=== PATIENT | female | born 1940 | race Caucasian/White ===

== ENCOUNTER 2019-05-29 09:16 | Emergency (ER) | payer MEDICARE, BC ==
--- NOTE | 2019-05-29 10:12 | EDM.PDOC ---
ED HPI GENERAL MEDICAL PROBLEM - General Chief Complaint: General Stated Complaint: SHORTNESS OF BREATH Time Seen by Provider: 05/29/19 09:55 Source of Information: Reports: Patient, Old Records, RN History Limitations: Reports: No Limitations - History of Present Illness INITIAL COMMENTS - FREE TEXT/NARRATIVE: 78 yo female was traveling as a passenger in her family car on her way to a daughter's in [place]. They got about 30 min from home and she felt very subtle chest tightness and mild SOB. They turned around and came back here. She is feeling some better on arrival to the ER. She has no cardiac hx. No recent calf pain or LE edema. She has a remote hx of breast CA. No recent fevers or cough. Onset: Today Onset Date: 05/29/19 Duration: Minutes:, Improving Location: Reports: Chest Quality: Reports: Other (subtle tightness) Severity: Mild Improves with: Reports: Other (? 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) (none) anterior chest Pain Score (Numeric/FACES): 5 - Related Data Allergies Allergy/AdvReac Type Severity Reaction Status Date / Time No Known Allergies Allergy Verified 05/29/19 09:38 Home Meds: Home Meds Ascorbic Acid [C-500] 500 mg PO DAILY 09/26/14 [History] Aspirin 325 mg PO DAILY 09/26/14 [History] Calcium Carbonate [Calcium] 1,200 mg PO DAILY 09/26/14 [History] Cholecalciferol (Vitamin D3) [Vitamin D3] 2,000 unit PO DAILY 09/26/14 [History] Multivitamin with Minerals [Multiple Vitamin] 1 tab PO DAILY 09/26/14 [History] Vitamin E 100 unit PO DAILY 09/26/14 [History] Donepezil HCl [Aricept] 10 mg PO DAILY 05/29/19 [History] Doxycycline [Vibramycin] 100 mg PO BID #14 cap 05/29/19 [Rx] Everolimus [Afinitor] 10 mg PO DAILY 05/29/19 [History] Exemestane 25 mg PO DAILY 05/29/19 [History] Past Medical History Respiratory History: Reports: Sleep Apnea Genitourinary History: Reports: Urinary Incontinence 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: Musculoskeletal History: Reports: Arthritis, Osteoarthritis, Other (See Below) Other Musculoskeletal History: osteopenia bunion great toe l bone metastasis Neurological History: Reports: Alzheimers Disease Psychiatric History: Reports: Depression Endocrine/Metabolic History: Reports: Other (See Below) Other Endocrine/Metabolic History: thrombocytopenia Oncologic (Cancer) History: Reports: Breast - Infectious Disease History Infectious Disease History: Reports: Chicken Pox - Past Surgical History Female Surgical History: Reports: Mastectomy, Other (See Below) Other Female Surgeries/Procedures: uterine prolapse Oncologic Surgical History: Reports: Mastectomy Social & Family History - Tobacco Use Smoking Status *Q: Never Smoker Second Hand Smoke Exposure: No - Caffeine Use Caffeine Use: Reports: Coffee, Soda - Alcohol Use Days Per Week of Alcohol Use: 0 - Recreational Drug Use Recreational Drug Use: No ED ROS GENERAL - Review of Systems Review Of Systems: See Below Constitutional: Reports: No Symptoms HEENT: Reports: No Symptoms Respiratory: Reports: Shortness of Breath (mild, better now) Cardiovascular: Reports: Chest Pain (mild chest tightness). Denies: Dyspnea on Exertion, Edema, Lightheadedness, Orthopnea, Palpitations, Syncope GI/Abdominal: Reports: No Symptoms : Reports: No Symptoms Musculoskeletal: Reports: No Symptoms Skin: Reports: No Symptoms Neurological: Reports: No Symptoms ED EXAM, GENERAL - Physical Exam Exam: See Below Exam Limited By: No Limitations General Appearance: Alert, WD/WN, No Apparent Distress Eye Exam: Bilateral Eye: Normal Inspection Ears: Normal External Exam, Normal Canal, Hearing Grossly Normal Ear Exam: Bilateral Ear: Auricle Normal, Canal Normal Nose: Normal Inspection, No Blood Throat/Mouth: Normal Inspection, Normal Lips, Normal Oropharynx, Normal Voice, No Airway Compromise Head: Atraumatic, Normocephalic Neck: Normal Inspection Respiratory/Chest: No Respiratory Distress, Lungs Clear, Normal Breath Sounds, No Accessory Muscle Use Cardiovascular: Regular Rate, Rhythm, No Edema GI/Abdominal: Normal Bowel Sounds, Soft, Non-Tender, No Distention Back Exam: Normal Inspection. No: CVA Tenderness (R), CVA Tenderness (L) Extremities: Normal Inspection, Normal Range of Motion, Non-Tender, No Pedal Edema Neurological: Alert, Oriented, CN II-XII Intact, Normal Cognition, No Motor/ Sensory Deficits Psychiatric: Normal Affect, Normal Mood Skin Exam: Warm, Dry, Intact, Normal Color, No Rash EKG INTERPRETATION EKG Date: 05/29/19 Time: 10:25 Rhythm: NSR Rate (Beats/Min): 85 [place]: Normal P-Wave: Present QRS: Normal ST-T: Normal QT: Prolonged Comparison: NA - No Prior EKG Course - Vital Signs Last Recorded V/S: Last Vital Signs Temp 37.1 C 05/29/19 09:57 Pulse 86 05/29/19 10:32 Resp 12 05/29/19 10:32 BP 128/76 05/29/19 10:32 Pulse Ox 95 05/29/19 10:32 - Orders/Labs/Meds Orders: Active Orders 24 hr Category Date Time Status EKG Documentation Completion [RC] ASDIRECTED Care 05/29/19 10:07 Active Iopamidol [Isovue-370 (76%)] Med 05/29/19 11:45 Active 75 ml IV . DIRECTED NS + KCl 20mEq/L [Normal Saline with 20 mEq KCl] 1,000 Med 05/29/19 11:45 Active ml IV ASDIRECTED Sodium Chloride 0.9% [Saline Flush] Med 05/29/19 11:16 Active 10 ml FLUSH ASDIRECTED PRN Sodium Chloride 0.9% [Saline Flush] Med 05/29/19 11:45 Active 10 ml FLUSH ONETIME PRN Saline Lock Insert [OM.PC] Routine Oth 05/29/19 11:16 Ordered EKG 12 Lead [EK] Routine Ther 05/29/19 10:06 Ordered Medication Orders Potassium Chloride/Sodium Chloride (Normal Saline With 20 Meq Kcl) 1,000 mls @ 500 mls/hr IV ASDIRECTED LEYDI Iopamidol (Isovue-370 (76%)) 75 ml IV . DIRECTED LEYDI Last Admin: 05/29/19 12:04 Dose: 75 ml Sodium Chloride (Saline Flush) 10 ml FLUSH ASDIRECTED PRN PRN Reason: Keep Vein Open Last Admin: 05/29/19 11:24 Dose: 10 ml Sodium Chloride (Saline Flush) 10 ml FLUSH ONETIME PRN PRN Reason: PER RADIOLOGY PROTOCOL Last Admin: 05/29/19 12:04 Dose: 10 ml Labs: Laboratory Tests 05/29/19 05/29/19 05/29/19 Range/Units 10:15 10:15 11:14 D-Dimer, Quantitative 1480 H (0.0-400.0) ng/mL Sodium 134 L (140-148) mmol/L Potassium 3.5 L (3.6-5.2) mmol/L Chloride 98 L (100-108) mmol/L Carbon Dioxide 25 (21-32) mmol/L Anion Gap 14.5 H (5.0-14.0) mmol/L BUN 9 (7-18) mg/dL Creatinine 0.8 (0.6-1.0) mg/dL Est Cr Clr Drug Dosing 44.36 mL/min Estimated GFR (MDRD) > 60 (>60) Glucose 173 H (74-106) mg/dL Calcium 8.2 L (8.5-10.1) mg/dL Troponin I < 0.017 (0.000-0.056) ng/mL Meds: Medications Generic Name Dose Route Start Last Admin Trade Name Freq PRN Reason Stop Dose Admin Potassium Chloride/Sodium Chloride 1,000 mls @ 500 mls/hr 05/29/19 11:45 Normal Saline With 20 Meq Kcl IV ASDIRECTED LEYDI Iopamidol 75 ml 05/29/19 11:45 05/29/19 12:04 Isovue-370 (76%) IV 75 ml . DIRECTED LEYDI Administration Sodium Chloride 10 ml 05/29/19 11:16 05/29/19 11:24 Saline Flush FLUSH 10 ml ASDIRECTED PRN Administration Keep Vein Open Sodium Chloride 10 ml 05/29/19 11:45 05/29/19 12:04 Saline Flush FLUSH 10 ml ONETIME PRN Administration PER RADIOLOGY PROTOCOL Discontinued Medications Generic Name Dose Route Start Last Admin Trade Name Freq PRN Reason Stop Dose Admin Sodium Chloride 79 mls @ 3 mls/sec 05/29/19 11:45 05/29/19 12:04 Normal Saline IV 05/29/19 11:46 3 mls/sec ONETIME ONE Administration - Radiology Interpretation Free Text/Narrative:: CTA chest-no PE, mixed interstitial alveolar pattern. CT Results Date: 05/29/19 Departure - Departure Time of Disposition: 13:53 Disposition: Home, Self-Care 01 Condition: Fair Clinical Impression: Bronchitis - Discharge Information *PRESCRIPTION DRUG MONITORING PROGRAM REVIEWED*: No *COPY OF PRESCRIPTION DRUG MONITORING REPORT IN PATIENT RADHA: No Referrals: Trenton Pack MD [Primary Care Provider] - Forms: ED Department Discharge Additional Instructions: Take doxycycline every 12 hrs. F/U with your doctor next week. Return if worse. Sepsis Event Note - Evaluation Sepsis Screening Result: No Definite Risk - Focused Exam Vital Signs: Vital Signs Temp Pulse Resp BP Pulse Ox 05/29/19 10:32 86 12 128/76 95 05/29/19 10:02 83 13 125/78 97 05/29/19 09:57 37.1 C 89 19 143/87 H 98 05/29/19 09:37 37.1 C 89 20 143/87 H 98 Date Exam was Performed: 05/29/19 Time Exam was Performed: 13:51 - My Orders Last 24 Hours: My Active Orders 05/29/19 10:06 EKG 12 Lead [EK] Routine 05/29/19 10:07 EKG Documentation Completion [RC] ASDIRECTED 05/29/19 11:16 Sodium Chloride 0.9% [Saline Flush] 10 ml FLUSH ASDIRECTED PRN Saline Lock Insert [OM.PC] Routine 05/29/19 11:45 Iopamidol [Isovue-370 (76%)] 75 ml IV . DIRECTED NS + KCl 20mEq/L [Normal Saline with 20 mEq KCl] 1,000 ml IV ASDIRECTED Sodium Chloride 0.9% [Saline Flush] 10 ml FLUSH ONETIME PRN - Assessment/Plan Last 24 Hours: My Active Orders 05/29/19 10:06 EKG 12 Lead [EK] Routine 05/29/19 10:07 EKG Documentation Completion [RC] ASDIRECTED 05/29/19 11:16 Sodium Chloride 0.9% [Saline Flush] 10 ml FLUSH ASDIRECTED PRN Saline Lock Insert [OM.PC] Routine 05/29/19 11:45 Iopamidol [Isovue-370 (76%)] 75 ml IV . DIRECTED NS + KCl 20mEq/L [Normal Saline with 20 mEq KCl] 1,000 ml IV ASDIRECTED Sodium Chloride 0.9% [Saline Flush] 10 ml FLUSH ONETIME PRN
[2019-05-29] MEDS ORDERED: Sodium Chloride 0.9% 10 ML Syringe FLUSH PRN ×2 (11:16→11:45)
[2019-05-29] MEDS ORDERED: Iopamidol 755 Mg/ML 100 ML Bottle IV SCH (11:45)
[2019-05-29] MEDS ORDERED: NS + KCl 20mEq/L 1,000 ML IV SCH (11:45)
--- NOTE | 2019-05-29 13:40 | CT ---
Ang Chest CLINICAL HISTORY: SOB, elevated d-dimer TECHNIQUE: Thin section axial contiguous tomographic sections were taken through the chest after bolus IV iodinated contrast administration. Coronal and sagittal images were reconstructed. Auto dosage reduction and iterative reconstruction techniques employed. FINDINGS: There is diffuse patchy infiltrate-like density in the right apex which has increased since prior study. There is similar patchy peripheral infiltrate-like densities in both lower lobes and in the right middle lobe. There is some minimal groundglass opacification in the left upper lobe. This is a change since prior study. There is no significant bronchiectasis but there is some bronchial thickening or peribronchial infiltrate. No filling defects identified in the pulmonary arteries. Aorta is free of aneurysm or dissection. There is moderate atheromatous plaque. No mediastinal mass or lymphadenopathy is seen. IMPRESSION: No evidence of pulmonary embolus Patchy infiltrate-like density diffusely throughout both lungs in a peripheral distribution. There is a mixed interstitial and alveolar pattern. There is minimal groundglass opacification This may represent an atypical pneumonia or possibly interstitial pneumonitis. Chronic infection is also consideration. Short-term follow-up recommended following course of treatment
[2019-05-29 14:07] VITALS: BP 146/88; PULSE 95
== END 2019-05-29 14:07 | disposition home or self-care (01) ==
LOC: JP.ED 09:16
DX: J40 Bronchitis, not specified as acute or chronic (principal); G30.9 Alzheimer's disease, unspecified; F02.80 Dementia in other diseases classified elsewhere, unspecified severity, without behavioral disturbance, psychotic disturbance, mood disturbance, and anxiety; Z79.82 Long term (current) use of aspirin
CPT/HCPCS: 36415; 71275; 80048; 84484; 85379; 93005; 99285; J7050; Q9967; 99283

== ENCOUNTER 2019-06-01 17:49 | Emergency (ER) | payer MEDICARE, BC ==
[2019-06-01 19:28] VITALS: BP 113/69; PULSE 89
--- NOTE | 2019-06-01 20:05 | EDM.PDOC ---
ED HPI GENERAL MEDICAL PROBLEM - General Chief Complaint: Lower Extremity Injury/Pain Stated Complaint: SOB,BRONCHITIS Time Seen by Provider: 06/01/19 19:50 Source of Information: Reports: Patient, Family History Limitations: Reports: No Limitations - History of Present Illness INITIAL COMMENTS - FREE TEXT/NARRATIVE: 78-year-old female with metastatic cancer, taking chemotherapy and has an oncology appointment on Wednesday but is developed a neuropathic-like pain extending on her right leg and her large toe. It is an intermittent burning sensation and very uncomfortable. She is taking aspirin but not getting enough pain relief. No fevers or chills, denies nausea or vomiting. Onset: Gradual (Pain is worsened over the past several days) Location: Reports: Lower Extremity, Right - Related Data Allergies Allergy/AdvReac Type Severity Reaction Status Date / Time No Known Allergies Allergy Verified 05/29/19 09:38 Home Meds: Home Meds Ascorbic Acid [C-500] 500 mg PO DAILY 09/26/14 [History] Aspirin 325 mg PO DAILY 09/26/14 [History] Calcium Carbonate [Calcium] 1,200 mg PO DAILY 09/26/14 [History] Cholecalciferol (Vitamin D3) [Vitamin D3] 2,000 unit PO DAILY 09/26/14 [History] Multivitamin with Minerals [Multiple Vitamin] 1 tab PO DAILY 09/26/14 [History] Vitamin E 100 unit PO DAILY 09/26/14 [History] Donepezil HCl [Aricept] 10 mg PO DAILY 05/29/19 [History] Doxycycline [Vibramycin] 100 mg PO BID #14 cap 05/29/19 [Rx] Everolimus [Afinitor] 10 mg PO DAILY 05/29/19 [History] Exemestane 25 mg PO DAILY 05/29/19 [History] Past Medical History Respiratory History: Reports: Sleep Apnea Genitourinary History: Reports: Urinary Incontinence 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: Musculoskeletal History: Reports: Arthritis, Osteoarthritis, Other (See Below) Other Musculoskeletal History: osteopenia bunion great toe l bone metastasis Neurological History: Reports: Alzheimers Disease Psychiatric History: Reports: Depression Endocrine/Metabolic History: Reports: Other (See Below) Other Endocrine/Metabolic History: thrombocytopenia Oncologic (Cancer) History: Reports: Bone, Breast - Infectious Disease History Infectious Disease History: Reports: Chicken Pox - Past Surgical History Female Surgical History: Reports: Mastectomy, Other (See Below) Other Female Surgeries/Procedures: uterine prolapse Oncologic Surgical History: Reports: Mastectomy Social & Family History - Tobacco Use Smoking Status *Q: Never Smoker - Caffeine Use Caffeine Use: Reports: Coffee, Soda Review of Systems - Review of Systems Review Of Systems: See Below Constitutional: Denies: Fever Respiratory: Reports: Shortness of Breath (Intermittent shortness of breath) Cardiovascular: Denies: Chest Pain GI/Abdominal: Denies: Abdominal Pain Skin: Denies: Bruising ED EXAM, GENERAL - Physical Exam Exam: See Below Exam Limited By: No Limitations General Appearance: Alert, No Apparent Distress (Looks uncomfortable but not distressed) Head: Atraumatic Respiratory/Chest: No Respiratory Distress Cardiovascular: Regular Rate, Rhythm Extremities: Other (Exam of the lower extremities shows objective symmetry, the right large toe is nontender to palpation and has good circulation. No discoloration or ulcerations.) Course - Vital Signs Last Recorded V/S: Last Vital Signs Temp 100.1 F 06/01/19 19:46 Pulse 89 06/01/19 19:46 Resp 19 06/01/19 19:46 BP 113/69 06/01/19 19:46 Pulse Ox 92 L 06/01/19 19:46 - Re-Assessments/Exams Free Text/Narrative Re-Assessment/Exam: 06/01/19 20:03 This pain is neuropathic, there is no apparent inflammation. She will be provided with hydrocodone to take along with naproxen for pain control and recheck on Wednesday as scheduled. Departure - Departure Time of Disposition: 20:17 Disposition: Home, Self-Care 01 Clinical Impression: Neuropathy of right lower extremity - Discharge Information Instructions: Peripheral Neuropathy Referrals: Trenton Pack MD [Primary Care Provider] - Forms: ED Department Discharge Care Plan Goals: 2 Aleve twice daily with added stronger pain medication as directed through the . Activity as tolerated recheck on Wednesday as scheduled. Return sooner if worsening such as difficulty breathing or other concerns. Sepsis Event Note - Evaluation Sepsis Screening Result: No Definite Risk - Focused Exam Vital Signs: Vital Signs Temp Pulse Resp BP Pulse Ox 06/01/19 19:46 100.1 F 89 19 113/69 92 L 06/01/19 19:27 100.1 F 89 19 113/69 92 L Date Exam was Performed: 06/01/19 Time Exam was Performed: 20:58
== END 2019-06-01 20:17 | disposition home or self-care (01) ==
LOC: JP.ED 17:49
DX: G57.91 Unspecified mononeuropathy of right lower limb (principal); M19.90 Unspecified osteoarthritis, unspecified site; F32.9 Major depressive disorder, single episode, unspecified; Z79.82 Long term (current) use of aspirin; Z79.899 Other long term (current) drug therapy
CPT/HCPCS: 99283; 99284

== ENCOUNTER 2019-06-27 15:24 | Emergency (ER) | payer MEDICARE, BC ==
--- NOTE | 2019-06-27 16:37 | EDM.PDOC ---
ED HPI GENERAL MEDICAL PROBLEM - General Chief Complaint: Respiratory Problem Stated Complaint: SOB Time Seen by Provider: 06/27/19 16:37 Source of Information: Reports: Patient History Limitations: Reports: No Limitations - History of Present Illness INITIAL COMMENTS - FREE TEXT/NARRATIVE: pt has a long history of breast Ca with metastatic disease. She has known meds to her ribs and her spine. For about 1 week she has been coughing and more sob. She has sounded congested. She has not been eating and drinking normally. She has been alot weaker than usual. She was seen by oncology and she was sent here for further evakluation. There are no beds avaialable tonight at [facility]. Onset: Gradual, Other ( This has been going on for a week or greater.) Duration: Hour(s): Location: Reports: Chest, Other (pt has a bruise and tenderness on the rt leg. 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) - Related Data Allergies Allergy/AdvReac Type Severity Reaction Status Date / Time No Known Allergies Allergy Verified 06/27/19 15:44 Home Meds: Home Meds Ascorbic Acid [C-500] 500 mg PO DAILY 09/26/14 [History] Vitamin E 100 unit PO DAILY 09/26/14 [History] Donepezil HCl [Aricept] 10 mg PO DAILY 05/29/19 [History] Everolimus [Afinitor] 10 mg PO DAILY 05/29/19 [History] Exemestane 25 mg PO DAILY 05/29/19 [History] Citalopram Hydrobromide [Celexa] 10 mg PO DAILY 06/27/19 [History] dexAMETHasone [Dexamethasone] 40 ml PO DAILY 06/27/19 [History] Past Medical History Respiratory History: Reports: Sleep Apnea Genitourinary History: Reports: Urinary Incontinence 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: Musculoskeletal History: Reports: Arthritis, Osteoarthritis, Other (See Below) Other Musculoskeletal History: osteopenia bunion great toe l bone metastasis, cancer in bones now also Neurological History: Reports: Alzheimers Disease Psychiatric History: Reports: Depression Endocrine/Metabolic History: Reports: Other (See Below) Other Endocrine/Metabolic History: thrombocytopenia Oncologic (Cancer) History: Reports: Bone, Breast - Infectious Disease History Infectious Disease History: Reports: Chicken Pox - Past Surgical History Female Surgical History: Reports: Mastectomy, Other (See Below) Other Female Surgeries/Procedures: uterine prolapse Oncologic Surgical History: Reports: Mastectomy Social & Family History - Tobacco Use Smoking Status *Q: Never Smoker - Caffeine Use Caffeine Use: Reports: Coffee - Recreational Drug Use Recreational Drug Use: No ED ROS GENERAL - Review of Systems Review Of Systems: See Below Constitutional: Reports: Chills, Malaise, Weakness, Decreased Appetite HEENT: Reports: No Symptoms Respiratory: Reports: Shortness of Breath, Wheezing, Sputum Cardiovascular: Reports: No Symptoms Endocrine: Reports: No Symptoms GI/Abdominal: Reports: No Symptoms, Decreased Appetite : Reports: No Symptoms Musculoskeletal: Reports: No Symptoms Skin: Reports: No Symptoms Neurological: Reports: No Symptoms, Other (pt does have known dementia. ) Psychiatric: Reports: Anxiety ED EXAM, GENERAL - Physical Exam Exam: See Below Free Text/Narrative:: pt was seen by oncology today and found to be very congested and weaker than usual. She has not been eating normally. Pt does have a history of dementia. Exam Limited By: No Limitations General Appearance: Alert, Anxious, Moderate Distress Ears: Normal TMs Nose: Normal Inspection Throat/Mouth: Other (mouth does look dry. ) Head: Atraumatic Neck: Normal Inspection Respiratory/Chest: Decreased Breath Sounds, Crackles, Rales, Rhonchi, Wheezing Cardiovascular: Regular Rate, Rhythm, Tachycardia GI/Abdominal: Soft, Non-Tender (Female) Exam: Deferred Rectal (Female) Exam: Deferred Back Exam: Normal Inspection Extremities: Other ( bruise on the inner aspect of the rt lower leg could be a superficial phebetis) Neurological: Alert Psychiatric: Anxious Course - Vital Signs Last Recorded V/S: Last Vital Signs Temp 37.7 C 06/27/19 18:38 Pulse 94 06/27/19 18:27 Resp 24 H 06/27/19 15:49 BP 129/81 06/27/19 18:27 Pulse Ox 90 L 06/27/19 18:27 - Orders/Labs/Meds Labs: Laboratory Tests 06/27/19 06/27/19 06/27/19 Range/Units 16:21 16:21 16:21 WBC 5.2 (4.5-11.0) K/uL RBC 4.78 (3.30-5.50) M/uL Hgb 12.3 (12.0-15.0) g/dL Hct 38.1 (36.0-48.0) % MCV 80 (80-98) fL MCH 26 L (27-31) pg MCHC 32 (32-36) % Plt Count 196 (150-400) K/uL Neut % (Auto) 80 H (36-66) % Lymph % (Auto) 7 L (24-44) % [place]ades % (Auto) 11 H (2-6) % Eos % (Auto) 2 (2-4) % Baso % (Auto) 0 (0-1) % D-Dimer, Quantitative 3590 H (0.0-400.0) ng/mL Sodium 129 L (140-148) mmol/L Potassium 4.0 (3.6-5.2) mmol/L Chloride 95 L (100-108) mmol/L Carbon Dioxide 25 (21-32) mmol/L Anion Gap 13.0 (5.0-14.0) mmol/L BUN 10 (7-18) mg/dL Creatinine 0.9 (0.6-1.0) mg/dL Est Cr Clr Drug Dosing 39.43 mL/min Estimated GFR (MDRD) > 60 (>60) Glucose 154 H (74-106) mg/dL Lactic Acid (0.4-2.0) mmol/L Calcium 8.1 L (8.5-10.1) mg/dL Magnesium (1.8-2.4) mg/dL Total Bilirubin 0.8 (0.2-1.0) mg/dL AST 75 H (15-37) U/L ALT 60 (12-78) U/L Alkaline Phosphatase 80 (46-116) U/L NT-Pro-B Natriuret Pep (5-450) pg/mL Total Protein 7.3 (6.4-8.2) g/dL Albumin 2.8 L (3.4-5.0) g/dL Globulin 4.5 H (2.3-3.5) g/dL Albumin/Globulin Ratio 0.6 L (1.2-2.2) Urine Color (YELLOW) Urine Appearance (CLEAR) Urine pH (5.0-8.0) Ur Specific [place] (1.008-1.030) Urine Protein (NEGATIVE) mg/dL Urine Glucose (UA) (NEGATIVE) mg/dL Urine Ketones (NEGATIVE) mg/dL Urine Occult Blood (NEGATIVE) Urine Nitrite (NEGATIVE) Urine Bilirubin (NEGATIVE) Urine Urobilinogen (0.2-1.0) EU/dL Ur Leukocyte Esterase (NEGATIVE) Urine RBC (0-5) Urine WBC (0-5) Ur Epithelial Cells Amorphous Sediment Urine Bacteria Urine Mucus 06/27/19 06/27/19 06/27/19 Range/Units 16:21 16:21 18:30 WBC (4.5-11.0) K/uL RBC (3.30-5.50) M/uL Hgb (12.0-15.0) g/dL Hct (36.0-48.0) % MCV (80-98) fL MCH (27-31) pg MCHC (32-36) % Plt Count (150-400) K/uL Neut % (Auto) (36-66) % Lymph % (Auto) (24-44) % Glades % (Auto) (2-6) % Eos % (Auto) (2-4) % Baso % (Auto) (0-1) % D-Dimer, Quantitative (0.0-400.0) ng/mL Sodium (140-148) mmol/L Potassium (3.6-5.2) mmol/L Chloride (100-108) mmol/L Carbon Dioxide (21-32) mmol/L Anion Gap (5.0-14.0) mmol/L BUN (7-18) mg/dL Creatinine (0.6-1.0) mg/dL Est Cr Clr Drug Dosing mL/min Estimated GFR (MDRD) (>60) Glucose (74-106) mg/dL Lactic Acid 1.7 (0.4-2.0) mmol/L Calcium (8.5-10.1) mg/dL Magnesium 2.1 (1.8-2.4) mg/dL Total Bilirubin (0.2-1.0) mg/dL AST (15-37) U/L ALT (12-78) U/L Alkaline Phosphatase (46-116) U/L NT-Pro-B Natriuret Pep 412 (5-450) pg/mL Total Protein (6.4-8.2) g/dL Albumin (3.4-5.0) g/dL Globulin (2.3-3.5) g/dL Albumin/Globulin Ratio (1.2-2.2) Urine Color (YELLOW) Urine Appearance (CLEAR) Urine pH (5.0-8.0) Ur Specific [place] (1.008-1.030) Urine Protein (NEGATIVE) mg/dL Urine Glucose (UA) (NEGATIVE) mg/dL Urine Ketones (NEGATIVE) mg/dL Urine Occult Blood (NEGATIVE) Urine Nitrite (NEGATIVE) Urine Bilirubin (NEGATIVE) Urine Urobilinogen (0.2-1.0) EU/dL Ur Leukocyte Esterase (NEGATIVE) Urine RBC (0-5) Urine WBC (0-5) Ur Epithelial Cells Amorphous Sediment Urine Bacteria Urine Mucus 06/27/19 Range/Units 19:09 WBC (4.5-11.0) K/uL RBC (3.30-5.50) M/uL Hgb (12.0-15.0) g/dL Hct (36.0-48.0) % MCV (80-98) fL MCH (27-31) pg MCHC (32-36) % Plt Count (150-400) K/uL Neut % (Auto) (36-66) % Lymph % (Auto) (24-44) % Glades % (Auto) (2-6) % Eos % (Auto) (2-4) % Baso % (Auto) (0-1) % D-Dimer, Quantitative (0.0-400.0) ng/mL Sodium (140-148) mmol/L Potassium (3.6-5.2) mmol/L Chloride (100-108) mmol/L Carbon Dioxide (21-32) mmol/L Anion Gap (5.0-14.0) mmol/L BUN (7-18) mg/dL Creatinine (0.6-1.0) mg/dL Est Cr Clr Drug Dosing mL/min Estimated GFR (MDRD) (>60) Glucose (74-106) mg/dL Lactic Acid (0.4-2.0) mmol/L Calcium (8.5-10.1) mg/dL Magnesium (1.8-2.4) mg/dL Total Bilirubin (0.2-1.0) mg/dL AST (15-37) U/L ALT (12-78) U/L Alkaline Phosphatase (46-116) U/L NT-Pro-B Natriuret Pep (5-450) pg/mL Total Protein (6.4-8.2) g/dL Albumin (3.4-5.0) g/dL Globulin (2.3-3.5) g/dL Albumin/Globulin Ratio (1.2-2.2) Urine Color Yellow (YELLOW) Urine Appearance Slightly cloudy A (CLEAR) Urine pH 6.0 (5.0-8.0) Ur Specific [place] 1.010 (1.008-1.030) Urine Protein Negative (NEGATIVE) mg/dL Urine Glucose (UA) Negative (NEGATIVE) mg/dL Urine Ketones 40 H (NEGATIVE) mg/dL Urine Occult Blood Negative (NEGATIVE) Urine Nitrite Negative (NEGATIVE) Urine Bilirubin Negative (NEGATIVE) Urine Urobilinogen 1.0 (0.2-1.0) EU/dL Ur Leukocyte Esterase Small H (NEGATIVE) Urine RBC 0-5 (0-5) Urine WBC 5-10 H (0-5) Ur Epithelial Cells Moderate Amorphous Sediment Not seen Urine Bacteria Rare Urine Mucus Not seen Meds: Medications Discontinued Medications Generic Name Dose Route Start Last Admin Trade Name Freq PRN Reason Stop Dose Admin Albuterol 2.5 mg 06/27/19 18:13 06/27/19 18:18 Proventil Neb Soln NEB 06/27/19 18:14 2.5 mg ONETIME ONE Administration Sodium Chloride 1,000 mls @ 500 mls/hr 06/27/19 17:15 06/27/19 17:43 Normal Saline IV 500 mls/hr ASDIRECTED LEYDI Administration Sodium Chloride 100 mls @ 3 mls/sec 06/27/19 17:30 06/27/19 17:31 Normal Saline IV 3 mls/sec ASDIRECTED LEYDI Administration Piperacillin Sod/Tazobactam 50 mls @ 100 mls/hr 06/27/19 18:30 06/27/19 18:26 Sod 3.375 gm/ Sodium Chloride IV 100 mls/hr Q6H LEYDI Administration Iopamidol 100 ml 06/27/19 17:30 06/27/19 17:31 Isovue-370 (76%) IV 100 ml . DIRECTED LEYDI Administration Sodium Chloride 10 ml 06/27/19 17:16 06/27/19 17:31 Saline Flush FLUSH 10 ml ASDIRECTED PRN Administration Keep Vein Open - Re-Assessments/Exams Free Text/Narrative Re-Assessment/Exam: 06/27/19 18:11 angio of the chest was neg for clots. definite infiltrates present. Pt is feels some better with fluids running. She will be given zosyn prior to leaving. 06/27/19 18:16 06/27/19 18:18 p was given a albuterol neb. This did ghelp her breathing. She continued to have adequate sats with 2 liters. There are no beds avaialable so will need to transfer. 06/29/19 18:37 Departure - Departure Time of Disposition: 19:20 Disposition: DC/Tfer to Acute Hospital 02 Condition: Fair Clinical Impression: Bilateral pneumonia, Breast cancer metastasized to bone, Dehydration - Discharge Information Referrals: Trenton Pack MD [Primary Care Provider] - Forms: ED Department Discharge Care Plan Goals: transfer to [facility]. Sepsis Event Note - Evaluation Sepsis Screening Result: Possible Sepsis Risk - Focused Exam Date Exam was Performed: 06/29/19 Time Exam was Performed: 18:39
--- NOTE | 2019-06-27 16:41 | CRLCR ---
INDICATION: Cough. Congestion. TECHNIQUE: AP portable chest. COMPARISON: September 05, 2015. FINDINGS: Postsurgical change likely from a right mastectomy with surgical clips in the right axilla. Multiple old right lateral rib fractures. New infiltrates within the left upper and left lower lobe. Fibrotic appearing infiltrate right mid to lower lung. Overall heart size is toward the upper limit of normal accentuated by the portable technique. IMPRESSION: Patchy infiltrates throughout the left lung particularly the left lower lobe and less so within the right mid to lower lung. Radiographic followup is recommended after appropriate treatment. Dictated by Zeeshan Lovett MD @ Jun 27 2019 4:38PM Signed by Dr. Zeeshan Lovett @ Jun 27 2019 4:38PM
[2019-06-27] MEDS ORDERED: Sodium Chloride 0.9% 1,000 ML IV SCH (17:15)
[2019-06-27] MEDS ORDERED: Sodium Chloride 0.9% 10 ML Syringe FLUSH PRN (17:16)
[2019-06-27] MEDS ORDERED: Sodium Chloride 0.9% 100 ML IV SCH (17:30)
[2019-06-27] MEDS ORDERED: Iopamidol 755 Mg/ML 100 ML Bottle IV SCH (17:30)
--- NOTE | 2019-06-27 18:06 | CRLCT ---
INDICATION: Shortness of breath TECHNIQUE: CT chest with i.v. contrast using pulmonary angiographic technique. Coronal and sagittal reformats were obtained. CONTRAST: 100 mL Isovue 370 COMPARISON: 05/29/2019 FINDINGS: Cardiovascular: The pulmonary arteries are unremarkable in enhancement with no evidence of acute pulmonary embolism. Mild calcifications of the mitral valve annulus are present. This can be associated with coronary artery disease. The heart has an unremarkable appearance and size. Ectasia of the ascending aorta is present measuring 3.7 cm. Mediastinum: No mass or adenopathy seen. Lung: Patchy ground-glass opacities are present in apices. Diffuse subpleural consolidation with architecture distortion is seen in the mid lower lung zones bilaterally, significantly progressed from prior examination. Pleura and pericardium: Small new bilateral pleural effusions are present. No significant pericardial effusion is present. Chest wall and axilla: No mass or adenopathy seen. Bone: Diffuse sclerosis of the T5 vertebral body with scattered sclerotic lesions are seen in the lower thoracic spine without significant interval change. Remote, healed fracture of the sternum and scattered posterior ribs are seen. Upper abdomen: Several punctate calcified gallstones are noted. Small sliding type esophageal hiatal hernia (type I) is present. IMPRESSIONS: 1. No CT evidence of acute pulmonary emboli seen. 2. Small new bilateral pleural effusions are present. 3. Diffuse subpleural consolidation with architecture distortion is seen in the mid lower lung zones bilaterally, significantly progressed from prior examination. The differential diagnosis includes cryptogenic organizing pneumonia, eosinophilic pneumonia, or infectious pneumonia. Evaluation with bronchoscopy may be helpful. 4. Diffuse sclerosis of the T5 vertebral body with scattered sclerotic lesions are seen in the lower thoracic spine without significant interval change. Findings most likely due to osseous metastatic disease. Dictated by Tramaine Pablo MD @ 06/27/2019 6:03:30 PM Please note that all CT scans at this facility use dose modulation, iterative reconstruction, and/or weight-based dosing when appropriate to reduce radiation dose to as low as reasonably achievable. Dictated by: Tramaine Pablo MD @ 06/27/2019 18:03:48 (Electronically Signed)
[2019-06-27] MEDS ORDERED: Albuterol 0.083% 2.5 MG/3 ML Neb Soln NEB ONE (18:13)
[2019-06-27 18:28] VITALS: BP 129/81; PULSE 94
[2019-06-27] MEDS ORDERED: Piperacillin/Tazobactam 3.375 GM in Sodium Chloride 0.9% 50 ML IV SCH (18:30)
== END 2019-06-27 19:16 ==
LOC: JP.ED 15:24
DX: E86.0 Dehydration (principal); J18.9 Pneumonia, unspecified organism; C50.919 Malignant neoplasm of unspecified site of unspecified female breast; C79.51 Secondary malignant neoplasm of bone; M19.90 Unspecified osteoarthritis, unspecified site; F32.9 Major depressive disorder, single episode, unspecified; Z79.899 Other long term (current) drug therapy
CPT/HCPCS: 36415; 71045; 71275; 80053; 81001; 83605; 83735; 83880; 85025; 85379; 87040; 87804; 93005; 94640; 96361; 96365; 99285; J2543; J7030; J7050; Q9967

== ENCOUNTER 2019-09-30 13:48 | Emergency (ER) | payer MEDICARE, BC ==
[2019-09-30 14:19] VITALS: BP 142/91; PULSE 97
--- NOTE | 2019-09-30 14:55 | EDM.PDOC ---
ED HPI GENERAL MEDICAL PROBLEM - General Chief Complaint: Genitourinary Problem Stated Complaint: POSSIBLE BLADDER INFECTION Time Seen by Provider: 09/30/19 14:35 Source of Information: Reports: Patient, Family, Old Records History Limitations: Reports: No Limitations - History of Present Illness INITIAL COMMENTS - FREE TEXT/NARRATIVE: 79 yo female came in saying she thought she had a UTI. It turns out she has had R lateral chest wall pain for a couple days and her daughter dx'd her over the phone as having a UTI. There was no known injury to this area. No SOB. Coughing does increase the pain. Here with her . Onset: Gradual Onset Date: 09/29/19 Duration: Day(s): (1+), Waxing/Waning Location: Reports: Chest (R lateral) Quality: Reports: Sharp, Stabbing Severity: Moderate Improves with: Reports: Medication (took some aspirin yesterday) Worsens with: Reports: Movement (or coughing) Context: Reports: Other (unknown) Associated Symptoms: Reports: No Other Symptoms. 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) - Related Data Allergies Allergy/AdvReac Type Severity Reaction Status Date / Time No Known Allergies Allergy Verified 06/27/19 15:44 Home Meds: Home Meds Ascorbic Acid [C-500] 500 mg PO DAILY 09/26/14 [History] Vitamin E 100 unit PO DAILY 09/26/14 [History] Donepezil HCl [Aricept] 10 mg PO DAILY 05/29/19 [History] Everolimus [Afinitor] 10 mg PO DAILY 05/29/19 [History] Exemestane 25 mg PO DAILY 05/29/19 [History] Citalopram Hydrobromide [Celexa] 10 mg PO DAILY 06/27/19 [History] dexAMETHasone [Dexamethasone] 40 ml PO DAILY 06/27/19 [History] Past Medical History Respiratory History: Reports: Sleep Apnea Genitourinary History: Reports: Urinary Incontinence 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: Musculoskeletal History: Reports: Arthritis, Osteoarthritis, Other (See Below) Other Musculoskeletal History: osteopenia bunion great toe l bone metastasis, cancer in bones now also Neurological History: Reports: Alzheimers Disease Psychiatric History: Reports: Depression Endocrine/Metabolic History: Reports: Other (See Below) Other Endocrine/Metabolic History: thrombocytopenia Oncologic (Cancer) History: Reports: Bone, Breast - Infectious Disease History Infectious Disease History: Reports: Chicken Pox - Past Surgical History Female Surgical History: Reports: Mastectomy, Other (See Below) Other Female Surgeries/Procedures: uterine prolapse Oncologic Surgical History: Reports: Mastectomy Social & Family History - Caffeine Use Caffeine Use: Reports: Coffee ED ROS GENERAL - Review of Systems Review Of Systems: See Below Constitutional: Reports: No Symptoms HEENT: Reports: No Symptoms Respiratory: Reports: Pleuritic Chest Pain (R lateral chest). Denies: Shortness of Breath, Wheezing, Cough, Sputum, Hemoptysis Cardiovascular: Reports: Chest Pain (R lateral chest wall) Endocrine: Reports: No Symptoms GI/Abdominal: Reports: No Symptoms Skin: Reports: No Symptoms Neurological: Reports: No Symptoms ED EXAM, GENERAL - Physical Exam Exam: See Below Exam Limited By: No Limitations General Appearance: Alert, WD/WN, No Apparent Distress Nose: Normal Inspection Throat/Mouth: Normal Lips, Normal Oropharynx, Normal Voice, No Airway Compromise Head: Atraumatic, Normocephalic Neck: Normal Inspection Respiratory/Chest: No Respiratory Distress, Lungs Clear, Normal Breath Sounds, No Accessory Muscle Use. No: Chest Non-Tender (chest wall tenderness without crepitus) Cardiovascular: Regular Rate, Rhythm, No Edema Back Exam: Normal Inspection. No: CVA Tenderness (R), CVA Tenderness (L) Extremities: Normal Inspection, Normal Range of Motion, Non-Tender, No Pedal Edema Neurological: Alert, Oriented, CN II-XII Intact, Normal Cognition, No Motor/ Sensory Deficits Psychiatric: Normal Affect, Normal Mood Skin Exam: Warm, Dry, Intact, Normal Color, No Rash. No: Ecchymosis Course - Vital Signs Last Recorded V/S: Last Vital Signs Temp 36.5 C 09/30/19 14:18 Pulse 97 09/30/19 14:18 Resp 16 09/30/19 14:18 BP 142/91 H 09/30/19 14:18 Pulse Ox 96 09/30/19 14:18 - Orders/Labs/Meds Labs: Laboratory Tests 09/30/19 Range/Units 14:25 Urine Color Yellow (YELLOW) Urine Appearance Clear (CLEAR) Urine pH 6.0 (5.0-8.0) Ur Specific [place] 1.025 (1.008-1.030) Urine Protein Negative (NEGATIVE) mg/dL Urine Glucose (UA) Negative (NEGATIVE) mg/dL Urine Ketones Negative (NEGATIVE) mg/dL Urine Occult Blood Negative (NEGATIVE) Urine Nitrite Negative (NEGATIVE) Urine Bilirubin Negative (NEGATIVE) Urine Urobilinogen 0.2 (0.2-1.0) EU/dL Ur Leukocyte Esterase Small H (NEGATIVE) Urine RBC Not seen (0-5) Urine WBC 0-5 (0-5) Ur Epithelial Cells Moderate Urine Bacteria Rare Departure - Departure Time of Disposition: 15:00 Disposition: Home, Self-Care 01 Condition: Good Clinical Impression: Rib pain on right side - Discharge Information *PRESCRIPTION DRUG MONITORING PROGRAM REVIEWED*: No *COPY OF PRESCRIPTION DRUG MONITORING REPORT IN PATIENT RADHA: No Instructions: Chest Wall Pain Referrals: PCP,None [Primary Care Provider] - Additional Instructions: Acetaminophen up to 1000 mg every 6 hrs as needed. Recheck with your provider next week. Sepsis Event Note - Focused Exam Vital Signs: Vital Signs Temp Pulse Resp BP Pulse Ox 09/30/19 14:18 36.5 C 97 16 142/91 H 96 Date Exam was Performed: 09/30/19 Time Exam was Performed: 14:49
== END 2019-09-30 15:21 | disposition home or self-care (01) ==
LOC: JP.ED 13:48
DX: R07.81 Pleurodynia (principal); G30.9 Alzheimer's disease, unspecified; F32.9 Major depressive disorder, single episode, unspecified; M19.90 Unspecified osteoarthritis, unspecified site; Z79.899 Other long term (current) drug therapy
CPT/HCPCS: 81001; 99282; 99283

== ENCOUNTER 2020-03-05 09:24 | Observation (INO) | payer MEDICARE, BC, OTHER ==
[2020-03-05] MEDS ORDERED: Sodium Chloride 0.9% 10 ML Syringe FLUSH PRN ×3 (09:41→14:57)
--- NOTE | 2020-03-05 10:04 | EDM.PDOC ---
ED HPI GENERAL MEDICAL PROBLEM - General Chief Complaint: General Stated Complaint: WEAKNESS CANCER Time Seen by Provider: 03/05/20 09:50 Source of Information: Reports: Patient, EMS, Old Records History Limitations: Reports: No Limitations - History of Present Illness INITIAL COMMENTS - FREE TEXT/NARRATIVE: 79 yo female with a pHx of known metastatic breast CA presents with weakness. She does not have pain out of control. No problems with urination, bowels, or fever. Does get SOB at times, but doesn't have this now. Lives with her and just got home care set up. Her appetite has only been fair. Slid out of bed this morning and was unable to get up due mainly to her weakness, but somewhat for pain issues. Family thinks she cannot be at home anymore due to her iss ues/condition. Recently started on Tramadol. Onset: Gradual Duration: Week(s):, Getting Worse Location: Reports: Generalized Quality: Reports: Other (not complaining of pain now) Severity: Moderate (generalized weakness) Improves with: Reports: None Worsens with: Reports: Other (time?) Context: Reports: Other (See HPI) Associated Symptoms: Reports: Confusion (mild, getting slowly progressively worse. ), Loss of Appetite, Malaise, Shortness of Breath (at times, not currently), Weakness (generalized), Other (anorexia). 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) (Usual meds) - Related Data Allergies Allergy/AdvReac Type Severity Reaction Status Date / Time No Known Allergies Allergy Verified 03/05/20 09:34 Home Meds: Home Meds Donepezil HCl [Aricept] 10 mg PO DAILY 05/29/19 [History] Exemestane 25 mg PO DAILY 05/29/19 [History] Amitriptyline [Elavil] 25 mg PO BEDTIME 03/05/20 [History] traMADol [Ultram] 50 mg PO Q8H PRN 03/05/20 [History] Past Medical History Respiratory History: Reports: Sleep Apnea Other Respiratory History: uses night time oxygen Genitourinary History: Reports: Urinary Incontinence 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: Musculoskeletal History: Reports: Arthritis, Osteoarthritis, Other (See Below) Other Musculoskeletal History: osteopenia bunion great toe l bone metastasis, cancer in bones now also Neurological History: Reports: Alzheimers Disease Psychiatric History: Reports: Depression Endocrine/Metabolic History: Reports: Other (See Below) Other Endocrine/Metabolic History: thrombocytopenia Oncologic (Cancer) History: Reports: Bone, Breast - Infectious Disease History Infectious Disease History: Reports: Chicken Pox - Past Surgical History Female Surgical History: Reports: Mastectomy, Other (See Below) Other Female Surgeries/Procedures: uterine prolapse Oncologic Surgical History: Reports: Mastectomy Social & Family History - Tobacco Use Smoking Status *Q: Never Smoker - Caffeine Use Caffeine Use: Reports: Coffee - Recreational Drug Use Recreational Drug Use: No ED ROS GENERAL - Review of Systems Review Of Systems: See Below Constitutional: Reports: Malaise, Weakness, Decreased Appetite. Denies: Fever, Night Sweats HEENT: Reports: No Symptoms Respiratory: Reports: Shortness of Breath (at times). Denies: Wheezing, Ple uritic Chest Pain, Cough, Sputum, Hemoptysis Cardiovascular: Reports: No Symptoms Endocrine: Reports: No Symptoms GI/Abdominal: Reports: Decreased Appetite. Denies: Abdominal Pain, Black Stool, Bloody Stool, Constipation, Diarrhea, Distension, Hematemesis, Hematochezia, Melena, Nausea, Vomiting : Reports: No Symptoms Musculoskeletal: Reports: Other (rib pain due to mets, not new, progressive) Skin: Reports: No Symptoms Neurological: Reports: Confusion (mild, progressive), Difficulty Walking (due to generalized weakness), Weakness (generalized). Denies: Headache Psychiatric: Reports: No Symptoms ED EXAM, GENERAL - Physical Exam Exam: See Below Exam Limited By: No Limitations General Appearance: Alert, WD/WN, No Apparent Distress, Obese Eye Exam: Bilateral Eye: Normal Inspection Ears: Normal External Exam, Normal Canal, Hearing Grossly Normal, Normal TMs Ear Exam: Bilateral Ear: Auricle Normal, Canal Normal, TM normal Nose: Normal Inspection, No Blood Throat/Mouth: Normal Inspection, Normal Lips, Normal Oropharynx, Normal Voice, No Airway Compromise Head: Atraumatic, Normocephalic Neck: Normal Inspection Respiratory/Chest: No Respiratory Distress, Lungs Clear, Normal Breath Sounds, No Accessory Muscle Use Cardiovascular: Regular Rate, Rhythm, No Edema, Tachycardia GI/Abdominal: Normal Bowel Sounds, Soft, Non-Tender, No Distention Back Exam: Normal Inspection. No: CVA Tenderness (R), CVA Tenderness (L) Extremities: Normal Inspection, Normal Range of Motion, Non-Tender, No Pedal Edema Neurological: Alert, CN II-XII Intact, Normal Cognition, No Motor/Sensory Deficits, Confused (mildly), Other (mild lethargy) Psychiatric: Normal Affect, Normal Mood Skin Exam: Warm, Dry, Intact, Normal Color, No Rash Course - Vital Signs Text/Narrative:: Dr. Reyes called @ 1355h Last Recorded V/S: Last Vital Signs Temp 36.8 C 03/05/20 09:27 Pulse 113 H 03/05/20 09:27 Resp 18 03/05/20 09:27 BP 150/96 H 03/05/20 09:27 Pulse Ox 95 03/05/20 09:27 - Orders/Labs/Meds Orders: Active Orders 24 hr Category Date Time Status Cardiac Monitoring [RC] .As Directed Care 03/05/20 10:08 Active Iopamidol [Isovue-370 (76%)] Med 03/05/20 12:45 Active 80 ml IV . DIRECTED Sodium Chloride 0.9% [Saline Flush] Med 03/05/20 09:41 Active 10 ml FLUSH ASDIRECTED PRN Sodium Chloride 0.9% [Saline Flush] Med 03/05/20 12:35 Active 10 ml FLUSH ONETIME PRN Saline Lock Insert [OM.PC] Routine Oth 03/05/20 09:41 Ordered Medication Orders Iopamidol (Isovue-370 (76%)) 80 ml IV . DIRECTED LEYDI Last Admin: 03/05/20 12:54 Dose: 80 ml Documented by: ASHLEIGH Sodium Chloride (Saline Flush) 10 ml FLUSH ASDIRECTED PRN PRN Reason: Keep Vein Open Last Admin: 03/05/20 10:15 Dose: 10 ml Documented by: TONY Sodium Chloride (Saline Flush) 10 ml FLUSH ONETIME PRN PRN Reason: PER RADIOLOGY PROTOCOL Last Admin: 03/05/20 12:54 Dose: 10 ml Documented by: ASHLEIGH Labs: Laboratory Tests 03/05/20 03/05/20 03/05/20 Range/Units 09:41 09:52 09:57 WBC 7.1 (4.5-11.0) K/uL RBC 4.57 (3.30-5.50) M/uL Hgb 13.0 (12.0-15.0) g/dL Hct 40.8 (36.0-48.0) % MCV 89 (80-98) fL MCH 28 (27-31) pg MCHC 32 (32-36) % Plt Count 192 (150-400) K/uL D-Dimer, Quantitative 2970 H (0.0-400.0) ng/mL Sodium (140-148) mmol/L Potassium (3.6-5.2) mmol/L Chloride (100-108) mmol/L Carbon Dioxide (21-32) mmol/L Anion Gap (5.0-14.0) mmol/L BUN (7-18) mg/dL Creatinine (0.6-1.0) mg/dL Est Cr Clr Drug Dosing mL/min Estimated GFR (MDRD) (>60) Glucose (74-106) mg/dL Calcium (8.5-10.1) mg/dL Total Bilirubin (0.2-1.0) mg/dL AST (15-37) U/L ALT (12-78) U/L Alkaline Phosphatase (46-116) U/L Total Protein (6.4-8.2) g/dL Albumin (3.4-5.0) g/dL Globulin (2.3-3.5) g/dL Albumin/Globulin Ratio (1.2-2.2) Urine Color Yellow (YELLOW) Urine Appearance Slightly cloudy A (CLEAR) Urine pH 6.0 (5.0-8.0) Ur Specific [place] 1.020 (1.008-1.030) Urine Protein Negative (NEGATIVE) mg/dL Urine Glucose (UA) Negative (NEGATIVE) mg/dL Urine Ketones Negative (NEGATIVE) mg/dL Urine Occult Blood Negative (NEGATIVE) Urine Nitrite Negative (NEGATIVE) Urine Bilirubin Negative (NEGATIVE) Urine Urobilinogen 0.2 (0.2-1.0) EU/dL Ur Leukocyte Esterase Small H (NEGATIVE) Urine RBC 0-5 (0-5) Urine WBC 5-10 H (0-5) Ur Epithelial Cells Few Amorphous Sediment Not seen Urine Bacteria Few Urine Mucus Not seen 03/05/20 Range/Units 09:57 WBC (4.5-11.0) K/uL RBC (3.30-5.50) M/uL Hgb (12.0-15.0) g/dL Hct (36.0-48.0) % MCV (80-98) fL MCH (27-31) pg MCHC (32-36) % Plt Count (150-400) K/uL D-Dimer, Quantitative (0.0-400.0) ng/mL Sodium 137 L (140-148) mmol/L Potassium 4.1 (3.6-5.2) mmol/L Chloride 98 L (100-108) mmol/L Carbon Dioxide 30 (21-32) mmol/L Anion Gap 13.1 (5.0-14.0) mmol/L BUN 20 H D (7-18) mg/dL Creatinine 0.9 (0.6-1.0) mg/dL Est Cr Clr Drug Dosing 40.55 mL/min Estimated GFR (MDRD) > 60 (>60) Glucose 105 (74-106) mg/dL Calcium 11.2 H D (8.5-10.1) mg/dL Total Bilirubin 0.7 (0.2-1.0) mg/dL AST 79 H (15-37) U/L ALT 44 (12-78) U/L Alkaline Phosphatase 126 H (46-116) U/L Total Protein 8.0 (6.4-8.2) g/dL Albumin 3.8 (3.4-5.0) g/dL Globulin 4.2 H (2.3-3.5) g/dL Albumin/Globulin Ratio 0.9 L (1.2-2.2) Urine Color (YELLOW) Urine Appearance (CLEAR) Urine pH (5.0-8.0) Ur Specific [place] (1.008-1.030) Urine Protein (NEGATIVE) mg/dL Urine Glucose (UA) (NEGATIVE) mg/dL Urine Ketones (NEGATIVE) mg/dL Urine Occult Blood (NEGATIVE) Urine Nitrite (NEGATIVE) Urine Bilirubin (NEGATIVE) Urine Urobilinogen (0.2-1.0) EU/dL Ur Leukocyte Esterase (NEGATIVE) Urine RBC (0-5) Urine WBC (0-5) Ur Epithelial Cells Amorphous Sediment Urine Bacteria Urine Mucus Meds: Medications Generic Name Dose Route Start Last Admin Trade Name Freq PRN Reason Stop Dose Admin Iopamidol 80 ml 03/05/20 12:45 03/05/20 12:54 Isovue-370 (76%) IV 80 ml . DIRECTED LEYDI Administration Sodium Chloride 10 ml 03/05/20 09:41 03/05/20 10:15 Saline Flush FLUSH 10 ml ASDIRECTED PRN Administration Keep Vein Open Sodium Chloride 10 ml 03/05/20 12:35 03/05/20 12:54 Saline Flush FLUSH 10 ml ONETIME PRN Administration PER RADIOLOGY PROTOCOL Discontinued Medications Generic Name Dose Route Start Last Admin Trade Name Freq PRN Reason Stop Dose Admin Lactated Ringer's 1,000 mls @ 1,000 mls/hr 03/05/20 10:25 03/05/20 10:29 Ringers, Lactated IV 03/05/20 11:24 1,000 mls/hr BOLUS ONE Administration Lactated Ringer's 1,000 mls @ 500 mls/hr 03/05/20 11:27 03/05/20 12:03 Ringers, Lactated IV 03/05/20 13:26 500 mls/hr BOLUS ONE Administration Sodium Chloride 88 mls @ 3 mls/sec 03/05/20 12:35 03/05/20 12:54 Normal Saline IV 03/05/20 12:36 3 mls/sec ONETIME ONE Administration - Radiology Interpretation Free Text/Narrative:: CTA chest-neg CT Results Date: 03/05/20 CT Results Time: 13:18 Departure - Departure Time of Disposition: 14:00 Disposition: Refer to Observation Condition: Fair Clinical Impression: Weakness, Mild dehydration, Metastatic breast cancer, Elevated d-dimer - Discharge Information *PRESCRIPTION DRUG MONITORING PROGRAM REVIEWED*: Not Applicable *COPY OF PRESCRIPTION DRUG MONITORING REPORT IN PATIENT RADHA: Not Applicable Referrals: PCP,None [Primary Care Provider] - Forms: ED Department Discharge Sepsis Event Note (ED) - Evaluation Sepsis Screening Result: No Definite Risk - Focused Exam Vital Signs: Vital Signs Temp Pulse Resp BP Pulse Ox 03/05/20 09:27 36.8 C 113 H 18 150/96 H 95 - My Orders Last 24 Hours: My Active Orders 03/05/20 09:41 Sodium Chloride 0.9% [Saline Flush] 10 ml FLUSH ASDIRECTED PRN Saline Lock Insert [OM.PC] Routine 03/05/20 10:08 Cardiac Monitoring [RC] .As Directed 03/05/20 12:35 Sodium Chloride 0.9% [Saline Flush] 10 ml FLUSH ONETIME PRN 03/05/20 12:45 Iopamidol [Isovue-370 (76%)] 80 ml IV . DIRECTED - Assessment/Plan Last 24 Hours: My Active Orders 03/05/20 09:41 Sodium Chloride 0.9% [Saline Flush] 10 ml FLUSH ASDIRECTED PRN Saline Lock Insert [OM.PC] Routine 03/05/20 10:08 Cardiac Monitoring [RC] .As Directed 03/05/20 12:35 Sodium Chloride 0.9% [Saline Flush] 10 ml FLUSH ONETIME PRN 03/05/20 12:45 Iopamidol [Isovue-370 (76%)] 80 ml IV . DIRECTED
[2020-03-05] MEDS ORDERED: Lactated Ringers 1,000 ML IV ONE ×2 (10:25→11:27)
[2020-03-05] MEDS ORDERED: Iopamidol 755 Mg/ML 100 ML Bottle IV SCH (12:45)
--- NOTE | 2020-03-05 13:37 | CT ---
Ang Chest CLINICAL HISTORY: SOB, elevated d-dimer, history of metastatic breast carcinoma TECHNIQUE: Thin section axial contiguous tomographic sections were taken through the chest after bolus IV iodinated contrast administration. Coronal and sagittal images were reconstructed. Auto dosage reduction and iterative reconstruction techniques employed. FINDINGS: There is scarring in the right medial apex. There are patchy areas of scarring and fibrosis in both upper lobes. There is a right pleural effusion or pleural thickening with some patchy areas of fibrosis. There is some posterior lateral pleural thickening on the right correlating with an underlying expansile rib lesion. There are diffuse mixed density lesions throughout the thoracic spine and ribs This is consistent with breast cancer metastasis. There is less than optimal opacification of the pulmonary arteries. There are no definite filling defects. Aortic arch is free of aneurysm or dissection. There are atherosclerotic changes. No mediastinal mass or lymphadenopathy is identified. IMPRESSION: No evidence of pulmonary embolus Patchy pleural parenchymal scarring and areas of fibrosis. Previously seen infiltrates have resolved Right pleural effusion versus pleural thickening Diffuse bony metastasis
--- NOTE | 2020-03-05 14:06 | PCM.HP.2 ---
H&P History of Present Illness - General Date of Service: 03/05/20 Admit Problem/Dx: Admission Diagnosis/Problem Admission Diagnosis/Problem Weakness - History of Present Illness Initial Comments - Free Text/Narative: Ms. Burgess is an 79-year-old woman who was admitted through the emergency department observation status, for comfort management with underlying end-stage metastatic breast carcinoma. She has recently stopped aggressive treatment for her breast cancer. She does have some underlying dementia and has become more confused, currently unable to provide a meaningful history concerning recent symptoms or review of systems. She has lost strength over the past few weeks with decreased oral intake. She is unable to get out of bed by herself or even walk a short distance. Family is no longer able to care for her at home. They do not want any further aggressive interventions or evaluation, and feel that this is very consistent with the patient's previously expressed wishes. They would like her to be kept comfortable as the main objective of her ongoing care. - Related Data Allergies/Adverse Reactions: Allergies Allergy/AdvReac Type Severity Reaction Status Date / Time No Known Allergies Allergy Verified 03/05/20 09:34 Home Medications: Home Meds Donepezil HCl [Aricept] 10 mg PO DAILY 05/29/19 [History] Exemestane 25 mg PO DAILY 05/29/19 [History] Amitriptyline [Elavil] 25 mg PO BEDTIME 03/05/20 [History] traMADol [Ultram] 50 mg PO Q8H PRN 03/05/20 [History] Past Medical History Respiratory History: Reports: Sleep Apnea Other Respiratory History: uses night time oxygen Gastrointestinal History: Reports: GI Bleed Genitourinary History: Reports: Urinary Incontinence 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: Musculoskeletal History: Reports: Arthritis, Osteoarthritis, Other (See Below) Other Musculoskeletal History: osteopenia bunion great toe l bone metastasis, cancer in bones now also Neurological History: Reports: Alzheimers Disease Psychiatric History: Reports: Depression Endocrine/Metabolic History: Reports: Other (See Below) Other Endocrine/Metabolic History: thrombocytopenia Hematologic History: Reports: Other (See Below) Other Hematologic History: Thrombocytopenia Oncologic (Cancer) History: Reports: Bone, Breast Other Oncologic History: malignant neoplasm of right breast-metastasis to the bone. - Infectious Disease History Infectious Disease History: Reports: Chicken Pox - Past Surgical History Female Surgical History: Reports: Mastectomy, Other (See Below) Other Female Surgeries/Procedures: uterine prolapse Oncologic Surgical History: Reports: Mastectomy Social & Family History - Tobacco Use Smoking Status *Q: Never Smoker - Caffeine Use Caffeine Use: Reports: Coffee - Recreational Drug Use Recreational Drug Use: No H&P Review of Systems - Review of Systems: Review Of Systems: See Below General: Reports: ROS unobtainable (Dementia with confusion) Exam - Exam Exam: See Below - Vital Signs Vital Signs: Last Vital Signs Temp 98.2 F 03/05/20 09:27 Pulse 113 H 03/05/20 09:27 Resp 18 03/05/20 09:27 BP 150/96 H 03/05/20 09:27 Pulse Ox 95 03/05/20 09:27 Weight: 160 lb - Exam Quality Assessment: Supplemental Oxygen, DVT Prophylaxis General: Alert, Cooperative, Moderate Distress. No: Oriented HEENT: Conjunctiva Clear, Hearing Intact, Mucosa Moist & [place], Normal Nasal Septum, Posterior Pharynx Clear, Pupils Equal Neck: Supple, Trachea Midline, +2 Carotid Pulse wo Bruit Lungs: Clear to Auscultation, Normal Respiratory Effort, Decreased Breath Sounds Cardiovascular: Regular Rate, Regular Rhythm, Normal S1, Normal S2. No: Systolic Murmur, Diastolic Murmur GI/Abdominal Exam: Soft, Non-Tender, No Organomegaly, No Distention Back Exam: Paraspinal Tenderness, Vertebral Tenderness Extremities: Non-Tender, No Pedal Edema Skin: Warm, Dry, Intact Neuro Extensive - Mental Status: Alert, Memory Loss-Remote Events, Memory Loss- Recent Events. No: Oriented x3 - Patient Data Lab Results Last 24 hrs: Laboratory Results - last 24 hr 03/05/20 03/05/20 03/05/20 Range/Units 09:41 09:52 09:57 WBC 7.1 (4.5-11.0) K/uL RBC 4.57 (3.30-5.50) M/uL Hgb 13.0 (12.0-15.0) g/dL Hct 40.8 (36.0-48.0) % MCV 89 (80-98) fL MCH 28 (27-31) pg MCHC 32 (32-36) % Plt Count 192 (150-400) K/uL D-Dimer, Quantitative 2970 H (0.0-400.0) ng/mL Sodium (140-148) mmol/L Potassium (3.6-5.2) mmol/L Chloride (100-108) mmol/L Carbon Dioxide (21-32) mmol/L Anion Gap (5.0-14.0) mmol/L BUN (7-18) mg/dL Creatinine (0.6-1.0) mg/dL Est Cr Clr Drug Dosing mL/min Estimated GFR (MDRD) (>60) Glucose (74-106) mg/dL Calcium (8.5-10.1) mg/dL Total Bilirubin (0.2-1.0) mg/dL AST (15-37) U/L ALT (12-78) U/L Alkaline Phosphatase (46-116) U/L Total Protein (6.4-8.2) g/dL Albumin (3.4-5.0) g/dL Globulin (2.3-3.5) g/dL Albumin/Globulin Ratio (1.2-2.2) Urine Color Yellow (YELLOW) Urine Appearance Slightly cloudy A (CLEAR) Urine pH 6.0 (5.0-8.0) Ur Specific [place] 1.020 (1.008-1.030) Urine Protein Negative (NEGATIVE) mg/dL Urine Glucose (UA) Negative (NEGATIVE) mg/dL Urine Ketones Negative (NEGATIVE) mg/dL Urine Occult Blood Negative (NEGATIVE) Urine Nitrite Negative (NEGATIVE) Urine Bilirubin Negative (NEGATIVE) Urine Urobilinogen 0.2 (0.2-1.0) EU/dL Ur Leukocyte Esterase Small H (NEGATIVE) Urine RBC 0-5 (0-5) Urine WBC 5-10 H (0-5) Ur Epithelial Cells Few Amorphous Sediment Not seen Urine Bacteria Few Urine Mucus Not seen 03/05/20 Range/Units 09:57 WBC (4.5-11.0) K/uL RBC (3.30-5.50) M/uL Hgb (12.0-15.0) g/dL Hct (36.0-48.0) % MCV (80-98) fL MCH (27-31) pg MCHC (32-36) % Plt Count (150-400) K/uL D-Dimer, Quantitative (0.0-400.0) ng/mL Sodium 137 L (140-148) mmol/L Potassium 4.1 (3.6-5.2) mmol/L Chloride 98 L (100-108) mmol/L Carbon Dioxide 30 (21-32) mmol/L Anion Gap 13.1 (5.0-14.0) mmol/L BUN 20 H D (7-18) mg/dL Creatinine 0.9 (0.6-1.0) mg/dL Est Cr Clr Drug Dosing 40.55 mL/min Estimated GFR (MDRD) > 60 (>60) Glucose 105 (74-106) mg/dL Calcium 11.2 H D (8.5-10.1) mg/dL Total Bilirubin 0.7 (0.2-1.0) mg/dL AST 79 H (15-37) U/L ALT 44 (12-78) U/L Alkaline Phosphatase 126 H (46-116) U/L Total Protein 8.0 (6.4-8.2) g/dL Albumin 3.8 (3.4-5.0) g/dL Globulin 4.2 H (2.3-3.5) g/dL Albumin/Globulin Ratio 0.9 L (1.2-2.2) Urine Color (YELLOW) Urine Appearance (CLEAR) Urine pH (5.0-8.0) Ur Specific [place] (1.008-1.030) Urine Protein (NEGATIVE) mg/dL Urine Glucose (UA) (NEGATIVE) mg/dL Urine Ketones (NEGATIVE) mg/dL Urine Occult Blood (NEGATIVE) Urine Nitrite (NEGATIVE) Urine Bilirubin (NEGATIVE) Urine Urobilinogen (0.2-1.0) EU/dL Ur Leukocyte Esterase (NEGATIVE) Urine RBC (0-5) Urine WBC (0-5) Ur Epithelial Cells Amorphous Sediment Urine Bacteria Urine Mucus Result Diagrams: 03/05/20 09:57 03/05/20 09:57 Sepsis Event Note - Evaluation Sepsis Screening Result: No Definite Risk - Focused Exam Vital Signs: Vital Signs Temp Pulse Resp BP Pulse Ox 03/05/20 09:27 98.2 F 113 H 18 150/96 H 95 *Q Meaningful Use (ADM) - VTE Risk Assess *Q Each Risk Factor Represents 1 Point: Obesity ( BMI > 25 kg/m2) Total Score 1 Point Risk Factors: 1 Each Risk Factor Represents 2 Points: Malignancy (present or previous) Total Score 2 Point Risk Factors: 2 Each Risk Factor Represents 3 Points: Age 75 Years or Greater Total Score 3 Point Risk Factors: 3 Each Risk Factor Represents 5 Points: None Total Score 5 Point Risk Factors: 0 Venous Thromboembolism Risk Factor Score *Q: 6 Problem List Initiated/Reviewed/Updated: Yes Orders Last 24hrs: Active Orders 24 hr Category Date Time Status Patient Status Manage Transfer [TRANSFER] Routine ADT 03/05/20 13:57 Ordered Cardiac Monitoring [RC] .As Directed Care 03/05/20 10:08 Active Iopamidol [Isovue-370 (76%)] Med 03/05/20 12:45 Active 80 ml IV . DIRECTED Sodium Chloride 0.9% [Saline Flush] Med 03/05/20 09:41 Active 10 ml FLUSH ASDIRECTED PRN Sodium Chloride 0.9% [Saline Flush] Med 03/05/20 12:35 Active 10 ml FLUSH ONETIME PRN Saline Lock Insert [OM.PC] Routine Oth 03/05/20 09:41 Ordered Resuscitation Status Routine Resus Stat 03/05/20 14:00 Ordered Medication Orders Iopamidol (Isovue-370 (76%)) 80 ml IV . DIRECTED LEYDI Last Admin: 03/05/20 12:54 Dose: 80 ml Documented by: ASHLEIGH Sodium Chloride (Saline Flush) 10 ml FLUSH ASDIRECTED PRN PRN Reason: Keep Vein Open Last Admin: 03/05/20 10:15 Dose: 10 ml Documented by: TONY Sodium Chloride (Saline Flush) 10 ml FLUSH ONETIME PRN PRN Reason: PER RADIOLOGY PROTOCOL Last Admin: 03/05/20 12:54 Dose: 10 ml Documented by: ASHLEIGH Assessment/Plan Comment:: ASSESSMENT AND PLAN END-STAGE METASTATIC BREAST CARCINOMA-she has stopped all active treatment for management of her breast carcinoma and has requested comfort cares only with probable hospice admission. -Hospice consult -Morphine sulfate and lorazepam as needed for comfort DEMENTIA PALLIATIVE CARE-patient and family do not want aggressive interventions or testing -Comfort cares only MAINTENANCE ISSUES -DVT prophylaxis; not indicated -GI prophylaxis; not indicated -[place] catheter; not indicated -Nutrition; regular diet as tolerated -Nicotine dependence; not required CODE STATUS-DNR/DNI ADMISSION STATUS-this patient will be admitted to observation status, expect no more than a one night hospital stay for evaluation and management of problems as outlined above. DISPOSITION-anticipate discharge to home after the hospital stay. PRIMARY CARE PROVIDER- - Mortality Measure Prognosis:: Poor
[2020-03-05] MEDS ORDERED: Ondansetron 4 MG/2 ML SDV IV PRN (14:57)
[2020-03-05] MEDS ORDERED: Acetaminophen 325 MG Tab PO PRN (14:57)
[2020-03-05] MEDS ORDERED: Sodium Chloride 0.9% 1,000 ML IV SCH (14:57)
[2020-03-05] MEDS: LORazepam ORAL Concentrate 1MG/0.5ML U/D PO PRN (15:28)
[2020-03-05] MEDS: Morphine 10 MG/0.5 ML Oral Syringe PO PRN (15:51)
[2020-03-05] MEDS ORDERED: Enoxaparin 40 MG/0.4 ML Syringe SUBCUT SCH (16:00)
[2020-03-05] MEDS: AMITRIPTYLINE 25 MG PO SCH (20:38)
[2020-03-06] MEDS ORDERED: EXEMESTANE 25 MG PO SCH (09:00)
[2020-03-06] MEDS ORDERED: Donepezil 10 MG Tab PO SCH (09:00)
[2020-03-06] MEDS ORDERED: Non-Formulary Medication 1 Each (Exemestane [Exemestane] 25 MG) PO SCH (09:00)
[2020-03-06] MEDS: Morphine 10 MG/0.5 ML Oral Syringe PO PRN ×4 (11:07→22:51)
--- NOTE | 2020-03-06 16:07 | PCM.PN ---
- General Info Date of Service: 03/06/20 Subjective Update: Ms. Burgess reports that pain seems to be well controlled with current management. She remains fairly confused because of her underlying dementia and is unable to provide further meaningful information concerning symptoms or review of systems. - Patient Data Vitals - Most Recent: Last Vital Signs Temp 97.4 F 03/06/20 14:35 Pulse 104 H 03/06/20 14:35 Resp 18 03/06/20 14:35 BP 146/82 H 03/06/20 14:35 Pulse Ox 92 L 03/06/20 14:35 Weight - Most Recent: 162 lb 6.4 oz I&O - Last 24 Hours: Intake & Output 03/06/20 03/06/20 03/06/20 06:59 14:59 22:59 Intake Total 300 Balance 300 Lab Results Last 24 Hours: Laboratory Results - last 24 hr 03/05/20 Range/Units 16:08 SARS-CoV-2 RNA ([facility]) Negative (NEGATIVE) Med Orders - Current: Current Medications Acetaminophen (Tylenol) 650 mg PO Q4H PRN PRN Reason: Pain (Mild 1-3)/fever Amitriptyline HCl (Elavil) 25 mg PO BEDTIME LEYDI Last Admin: 03/05/20 20:38 Dose: 25 mg Documented by: Lorazepam (Ativan Oral Concentrate 1mg/0.5 Ml U/D) 0.5 mg PO Q2H PRN PRN Reason: Anxiety Last Admin: 03/05/20 15:28 Dose: 0.5 mg Documented by: Morphine Sulfate (Morphine 10 Mg/0.5 Ml Oral Syringe) 5 mg PO Q1H PRN PRN Reason: Pain Last Admin: 03/06/20 14:00 Dose: 5 mg Documented by: Ondansetron HCl (Zofran) 4 mg IV Q4H PRN PRN Reason: Nausea/Vomiting Sodium Chloride (Saline Flush) 10 ml FLUSH ASDIRECTED PRN PRN Reason: Keep Vein Open Discontinued Medications Donepezil HCl (Aricept) 10 mg PO DAILY LEYDI Enoxaparin Sodium (Lovenox) 40 mg SUBCUT Q24H [facility] Last Admin: 03/05/20 16:56 Dose: Not Given Documented by: Lactated Ringer's (Ringers, Lactated) 1,000 mls @ 1,000 mls/hr IV BOLUS ONE Stop: 03/05/20 11:24 Last Admin: 03/05/20 10:29 Dose: 1,000 mls/hr Documented by: Lactated Ringer's (Ringers, Lactated) 1,000 mls @ 500 mls/hr IV BOLUS ONE Stop: 03/05/20 13:26 Last Admin: 03/05/20 12:03 Dose: 500 mls/hr Documented by: Sodium Chloride (Normal Saline) 88 mls @ 3 mls/sec IV ONETIME ONE Stop: 03/05/20 12:36 Last Admin: 03/05/20 12:54 Dose: 3 mls/sec Documented by: Sodium Chloride (Normal Saline) 1,000 mls @ 75 mls/hr IV ASDIRECTED LEYDI Iopamidol (Isovue-370 (76%)) 80 ml IV . DIRECTED LEYDI Last Admin: 03/05/20 12:54 Dose: 80 ml Documented by: Exemestane 25mg Tab ((Ptom)) 0 each PO DAILY LEYDI Sodium Chloride (Saline Flush) 10 ml FLUSH ASDIRECTED PRN PRN Reason: Keep Vein Open Last Admin: 03/05/20 10:15 Dose: 10 ml Documented by: Sodium Chloride (Saline Flush) 10 ml FLUSH ONETIME PRN PRN Reason: PER RADIOLOGY PROTOCOL Last Admin: 03/05/20 12:54 Dose: 10 ml Documented by: - Exam General: Alert, Cooperative, Mild Distress. No: Oriented Lungs: Clear to Auscultation, Normal Respiratory Effort, Decreased Breath Sounds Cardiovascular: Regular Rate, Regular Rhythm, No Murmurs GI/Abdominal Exam: Soft, Non-Tender, No Organomegaly, No Distention Back Exam: Paraspinal Tenderness, Vertebral Tenderness Sepsis Event Note - Evaluation Sepsis Screening Result: No Definite Risk - Focused Exam Vital Signs: Vital Signs Temp Pulse Resp BP Pulse Ox 03/06/20 14:35 97.4 F 104 H 18 146/82 H 92 L 03/06/20 10:44 98.2 F 112 H 18 138/96 H 95 03/06/20 07:00 98.5 F 107 H 16 183/86 H 95 - Problem List Review Problem List Initiated/Reviewed/Updated: Yes - My Orders Last 24 Hours: My Active Orders 03/05/20 17:44 Convert IV to Saline Lock [OM.PC] Routine 03/05/20 21:00 Amitriptyline [Elavil] 25 mg PO BEDTIME - Plan Plan:: ASSESSMENT AND PLAN END-STAGE METASTATIC BREAST CARCINOMA-she has stopped all active treatment for management of her breast carcinoma and has requested comfort cares only with probable hospice admission. -Hospice consult tomorrow -Morphine sulfate and lorazepam as needed for comfort DEMENTIA PALLIATIVE CARE-patient and family do not want aggressive interventions or testing -Comfort cares only MAINTENANCE ISSUES -DVT prophylaxis; not indicated -GI prophylaxis; not indicated -Massey catheter; not indicated -Nutrition; regular diet as tolerated -Nicotine dependence; not required CODE STATUS-DNR/DNI ADMISSION STATUS-this patient will be admitted to observation status, expect no more than a one night hospital stay for evaluation and management of problems as outlined above. DISPOSITION-anticipate discharge to home after the hospital stay. PRIMARY CARE PROVIDER-
[2020-03-06] MEDS: AMITRIPTYLINE 25 MG PO SCH (20:29)
[2020-03-07] MEDS: LORazepam ORAL Concentrate 1MG/0.5ML U/D PO PRN (04:10)
[2020-03-07] MEDS: Morphine 10 MG/0.5 ML Oral Syringe PO PRN ×2 (07:35→10:00)
[2020-03-07 08:02] VITALS: BP 160/95; PULSE 102
--- NOTE | 2020-03-07 10:35 | PCM.DCSUM1 ---
Discharge Summary - Hospital Course Brief History: Ms. Burgess is an 79-year-old woman who was admitted through the emergency department with progressive weakness and increased confusion secondary to metastatic breast cancer and underlying dementia. - Discharge Data Discharge Date: 03/07/20 Discharge Disposition: DC/Tfer to SNF 03 Condition: Poor - Referral to Home Health Primary Care Physician: PCP None - Discharge Diagnosis/Problem(s) (1) Weakness SNOMED Code(s): 72838033 ICD Code: R53.1 - WEAKNESS Status: Acute Current Visit: Yes (2) Mild dehydration SNOMED Code(s): 4889934401655 ICD Code: E86.0 - DEHYDRATION Status: Acute Current Visit: Yes (3) Metastatic breast cancer SNOMED Code(s): 786076714, 456035682 ICD Code: C50.919 - MALIGNANT NEOPLASM OF UNSP SITE OF UNSPECIFIED FEMALE BREAST Status: Chronic Current Visit: Yes - Patient Summary/Data Hospital Course: Ms. Burgess is an 79-year-old woman who was admitted through the emergency department to observation status, for comfort management with underlying end- stage metastatic breast carcinoma. She has recently stopped aggressive treatment for her breast cancer. She does have some underlying dementia and has become more confused, currently unable to provide a meaningful history concerning recent symptoms or review of systems. She has lost strength over the past few weeks with decreased oral intake. She is unable to get out of bed by herself or even walk a short distance. Family is no longer able to care for her at home. They do not want any further aggressive interventions or evaluation, and feel that this is very consistent with the patient's previously expressed wishes. They would like her to be kept comfortable as the main objective of her ongoing care. On admission Ms. Burgess was started on morphine for management of her pain. By the time of discharge this resulted in apparent good pain control and much less agitation. Family met with hospice on the morning of discharge and [facility] for ongoing management. Activity will be as tolerated and she will resume her usual diet. - Patient Instructions Diet: Usual Diet as Tolerated Activity: As Tolerated Other/Special Instructions: [facility] to [facility] with hosp[facility] admission - Discharge Plan *PRESCRIPTION DRUG MONITORING PROGRAM REVIEWED*: Not Applicable *COPY OF PRESCRIPTION DRUG MONITORING REPORT IN PATIENT RADHA: Not Applicable Prescriptions/Med Rec: Morphine [Morphine 10 MG/0.5 ML Oral Syringe] 5 mg PO QID #30 ml Home Medications: Home Meds Amitriptyline [Elavil] 25 mg PO BEDTIME 03/05/20 [History] Morphine [Morphine 10 MG/0.5 ML Oral Syringe] 5 mg PO QID #30 ml 03/07/20 [Rx] Referrals: PCP,None [Primary Care Provider] - - Discharge Summary/Plan Comment DC Time >30 min.: No - Patient Data Vitals - Most Recent: Last Vital Signs Temp 97.5 F 03/07/20 07:57 Pulse 102 H 03/07/20 07:57 Resp 18 03/07/20 07:57 BP 160/95 H 03/07/20 07:57 Pulse Ox 92 L 03/07/20 07:57 Weight - Most Recent: 160 lb I&O - Last 24 hours: Intake & Output 03/06/20 03/07/20 03/07/20 22:59 06:59 14:59 Intake Total 30 Output Total 400 Balance -370 Med Orders - Current: Current Medications Acetaminophen (Tylenol) 650 mg PO Q4H PRN PRN Reason: Pain (Mild 1-3)/fever Amitriptyline HCl (Elavil) 25 mg PO BEDTIME LEYDI Last Admin: 03/06/20 20:29 Dose: 25 mg Documented by: Lorazepam (Ativan Oral Concentrate 1mg/0.5 Ml U/D) 0.5 mg PO Q2H PRN PRN Reason: Anxiety Last Admin: 03/07/20 04:10 Dose: 0.5 mg Documented by: Morphine Sulfate (Morphine 10 Mg/0.5 Ml Oral Syringe) 5 mg PO Q1H PRN PRN Reason: Pain Last Admin: 03/07/20 10:00 Dose: 5 mg Documented by: Ondansetron HCl (Zofran) 4 mg IV Q4H PRN PRN Reason: Nausea/Vomiting Sodium Chloride (Saline Flush) 10 ml FLUSH ASDIRECTED PRN PRN Reason: Keep Vein Open Discontinued Medications Donepezil HCl (Aricept) 10 mg PO DAILY LEYDI Enoxaparin Sodium (Lovenox) 40 mg SUBCUT Q24H [facility] Last Admin: 03/05/20 16:56 Dose: Not Given Documented by: Lactated Ringer's (Ringers, Lactated) 1,000 mls @ 1,000 mls/hr IV BOLUS ONE Stop: 03/05/20 11:24 Last Admin: 03/05/20 10:29 Dose: 1,000 mls/hr Documented by: Lactated Ringer's (Ringers, Lactated) 1,000 mls @ 500 mls/hr IV BOLUS ONE Stop: 03/05/20 13:26 Last Admin: 03/05/20 12:03 Dose: 500 mls/hr Documented by: Sodium Chloride (Normal Saline) 88 mls @ 3 mls/sec IV ONETIME ONE Stop: 03/05/20 12:36 Last Admin: 03/05/20 12:54 Dose: 3 mls/sec Documented by: Sodium Chloride (Normal Saline) 1,000 mls @ 75 mls/hr IV ASDIRECTED LEYDI Iopamidol (Isovue-370 (76%)) 80 ml IV . DIRECTED LEYDI Last Admin: 03/05/20 12:54 Dose: 80 ml Documented by: Exemestane 25mg Tab ((Ptom)) 0 each PO DAILY LEYDI Sodium Chloride (Saline Flush) 10 ml FLUSH ASDIRECTED PRN PRN Reason: Keep Vein Open Last Admin: 03/05/20 10:15 Dose: 10 ml Documented by: Sodium Chloride (Saline Flush) 10 ml FLUSH ONETIME PRN PRN Reason: PER RADIOLOGY PROTOCOL Last Admin: 03/05/20 12:54 Dose: 10 ml Documented by: - Exam General: Reports: Alert, Cooperative, No Acute Distress. Denies: Oriented Lungs: Reports: Clear to Auscultation, Normal Respiratory Effort Cardiovascular: Reports: Regular Rate, Regular Rhythm, No Murmurs GI/Abdominal Exam: Soft, Non-Tender, No Organomegaly, No Distention
== END 2020-03-07 11:42 ==
LOC: JP.ED 09:24 → JP.MS 13:57
PROVIDERS: ADMIT Hospitalist; ATTEND Hospitalist
DX: R53.1 Weakness (principal); F02.80 Dementia in other diseases classified elsewhere, unspecified severity, without behavioral disturbance, psychotic disturbance, mood disturbance, and anxiety; F32.9 Major depressive disorder, single episode, unspecified; C50.911 Malignant neoplasm of unspecified site of right female breast; C79.51 Secondary malignant neoplasm of bone; E86.0 Dehydration; Z66 Do not resuscitate; G47.30 Sleep apnea, unspecified; Z20.828 Contact with and (suspected) exposure to other viral communicable diseases; G30.9 Alzheimer's disease, unspecified; R79.1 Abnormal coagulation profile; Z51.5 Encounter for palliative care
CPT/HCPCS: 36415; 71275; 80053; 81001; 85027; 85379; 96360; 96361; 99217; 99218; 99224; 99284; 99285; A9270; G0378; J7050; J7120; Q9967; U0002